=== PATIENT | male | born 1990 ===

== ENCOUNTER 2022-09-05 02:31 | Emergency (ER) | payer SELFPAY ==
[~2022-09-05] VITALS: Ht 177.8 cm; Wt 70.0 kg
[2022-09-05 02:41] VITALS: O2SAT 100
[2022-09-05] MEDS ORDERED: CLIN-116 MT (04:26)
[2022-09-05 04:39] VITALS: BP 126/82; PULSE 92; RESP 18; TEMP 98.4
== END 2022-09-05 04:40 | disposition home or self-care (01) ==
LOC: ER 02:31
DX: S01.412A Laceration without foreign body of left cheek and temporomandibular area, initial encounter (principal); X58.XXXA Exposure to other specified factors, initial encounter; Y93.89 Activity, other specified; Y92.89 Other specified places as the place of occurrence of the external cause; Y99.8 Other external cause status
CPT/HCPCS: 99283